=== PATIENT | female | born 1995 | race Caucasian/White ===

== ENCOUNTER 2020-09-06 10:55 | Emergency (ER) | payer OTHER ==
[~2020-09-06 10:55] MED LIST: COLACE 100MG C100 MG PO; IBU800 MG PO; IBUPROFEN600 MG PO; LORTAB 5-325 M1 EACH PO; MACROBID 100 M100 MG PO; MEDROL DOSEPAK 24 MG PO; PYRIDIUM100 MG PO
[2020-09-06 11:57] LABS: BUN/CREATININE RATIO 19 (0-10)
[2020-09-06 12:23] LABS: HEMOGLOBIN 13.8 gm/dl (12.3-15.3); RED BLOOD COUNT 5.88 M/UL (4.00-5.10); WHITE BLOOD COUNT 4.4 K/UL (4.5-11.0)
[2020-09-06] MEDS ORDERED: PHENERGAN 25 MG25 M1 PO (14:56)
[2020-09-06] MEDS ORDERED: IBUPROFEN600 MG PO (14:56)
[2020-09-06] MEDS ORDERED: DECADRON6 MG PO (14:56)
== END 2020-09-06 15:14 | disposition home or self-care (01) ==
LOC: ER1 10:55
PROVIDERS: Family Medicine
DX: U07.1 COVID-19 (principal); Z88.0 Allergy status to penicillin
CPT/HCPCS: 71045; 80053; 82550; 82553; 83605; 84484; 85025; 87040; 93005; 96374; 99284; J2270; J2550; J7030

== ENCOUNTER → 2021-06-08 | Outpatient (CLI) | payer OTHER ==
[~2021-06-08] MED LIST changes: +DECADRON6 MG PO; +PHENERGAN 25 MG25 M1 PO
== END ==
LOC: LAB 11:25
DX: O20.0 Threatened abortion (principal); Z3A.00 Weeks of gestation of pregnancy not specified
CPT/HCPCS: 36415; 84702

== ENCOUNTER 2021-07-23 11:50 | Emergency (ER) | payer OTHER ==
[2021-07-23 13:14] LABS: HEMOGLOBIN 12.7 gm/dl (12.3-15.3); RED BLOOD COUNT 4.85 M/UL (4.00-5.10); WHITE BLOOD COUNT 9.2 K/UL (4.5-11.0)
[2021-07-23 13:58] LABS: BUN/CREATININE RATIO 10 (0-10)
== END 2021-07-23 15:23 | disposition home or self-care (01) ==
LOC: ER1 11:50
PROVIDERS: Physician Assistant
DX: R51.9 Headache, unspecified (principal); E86.0 Dehydration; R11.2 Nausea with vomiting, unspecified; Z88.0 Allergy status to penicillin; Z88.1 Allergy status to other antibiotic agents
CPT/HCPCS: 36415; 80053; 81001; 85025; 96374; 99284; J2550; J7030

== ENCOUNTER 2021-08-04 14:46 | Emergency (ER) | payer OTHER ==
[2021-08-04 15:37] LABS: HEMOGLOBIN 13.1 gm/dl (12.3-15.3); RED BLOOD COUNT 5.03 M/UL (4.00-5.10); WHITE BLOOD COUNT 8.2 K/UL (4.5-11.0)
[2021-08-04 16:16] LABS: BUN/CREATININE RATIO 11 (0-10)
[2021-08-04] MEDS ORDERED: OMNICEF 300 MG300 MG PO (16:27)
== END 2021-08-04 17:30 | disposition home or self-care (01) ==
LOC: ER1 14:46
PROVIDERS: Nurse Practitioner
DX: O23.42 Unspecified infection of urinary tract in pregnancy, second trimester (principal); N39.0 Urinary tract infection, site not specified; Z88.0 Allergy status to penicillin; Z88.1 Allergy status to other antibiotic agents; Z3A.14 14 weeks gestation of pregnancy
CPT/HCPCS: 80053; 81001; 85025; 87086; 96374; 99283; J0696

== ENCOUNTER 2021-09-07 12:58 | Emergency (ER) | payer OTHER ==
[~2021-09-07 12:58] MED LIST changes: +OMNICEF 300 MG300 MG PO
[2021-09-07 14:19] LABS: HEMOGLOBIN 12.6 gm/dl (12.3-15.3); RED BLOOD COUNT 4.7 M/UL (4.00-5.10)
[2021-09-07 14:41] LABS: BUN/CREATININE RATIO 11 (0-10)
[2021-09-07] MEDS ORDERED: MACROBID 100 M100 M1 PO (17:43)
== END 2021-09-07 18:28 | disposition home or self-care (01) ==
LOC: ER1 12:58
PROVIDERS: Physician Assistant Medical
DX: O98.512 Other viral diseases complicating pregnancy, second trimester (principal); O23.92 Unspecified genitourinary tract infection in pregnancy, second trimester; U07.1 COVID-19; Z88.0 Allergy status to penicillin; Z88.8 Allergy status to other drugs, medicaments and biological substances; Z3A.18 18 weeks gestation of pregnancy
CPT/HCPCS: 80053; 81001; 83605; 83690; 84702; 85025; 87040; 87086; 96374; 99284; J2405; U0002

== ENCOUNTER 2021-11-22 21:57 | Emergency (ER) | payer OTHER ==
[~2021-11-22 21:57] MED LIST changes: +MACROBID 100 M100 M1 PO
[2021-11-22 22:33] LABS: HEMOGLOBIN 11.4 gm/dl (12.3-15.3); RED BLOOD COUNT 4.54 M/UL (4.00-5.10); WHITE BLOOD COUNT 10.8 K/UL (4.5-11.0)
[2021-11-22 23:01] LABS: BUN/CREATININE RATIO 9 (0-10)
[2021-11-23] MEDS ORDERED: CEPHALEXIN250 M1 PO (01:40)
== END 2021-11-23 02:09 | disposition home or self-care (01) ==
LOC: ER1 21:57
PROVIDERS: Student in an Organized Health Care Education/Training Program
DX: O23.43 Unspecified infection of urinary tract in pregnancy, third trimester (principal); N39.0 Urinary tract infection, site not specified; O99.891 Other specified diseases and conditions complicating pregnancy; R00.2 Palpitations; Z3A.29 29 weeks gestation of pregnancy; Z88.0 Allergy status to penicillin
CPT/HCPCS: 71045; 80048; 81001; 82550; 82553; 84484; 85025; 87086; 93005; 99284

== ENCOUNTER 2021-12-06 09:29 | Outpatient (CLI) | payer OTHER ==
[~2021-12-06 09:29] MED LIST changes: +CEPHALEXIN250 M1 PO
== END 2021-12-06 14:39 | disposition home or self-care (01) ==
LOC: GENOP 09:29
DX: O99.891 Other specified diseases and conditions complicating pregnancy (principal); R10.30 Lower abdominal pain, unspecified; R00.2 Palpitations; O21.2 Late vomiting of pregnancy; Z88.0 Allergy status to penicillin; Z3A.31 31 weeks gestation of pregnancy
CPT/HCPCS: 81001; G0463